=== PATIENT | male | born 1985 | race Caucasian/White ===

== ENCOUNTER 2017-01-12 20:13 | Emergency (ER) | payer BC ==
[~2017-01-12] VITALS: Ht 172.7 cm; Wt 87.7 kg
[2017-01-12 20:15] VITALS: TEMP 36.8; Ht 172.7 cm; Wt 87.7 kg
[2017-01-12] MEDS ORDERED: PARO1TAB27 PO (21:28)
[2017-01-12 21:29] LABS: BASO % 0.3 %; BASO ABS # 0.03 K/uL (0-0.2); COMPLETE YES; EOS % 1.4 %; HEMATOCRIT 42.2 % (42-52); IG% 0.3 %; LYMPH % 28.4 %; LYMPH ABS # 2.66 K/uL (1.2-3.4); MEAN CELL VOLUME 86.5 fL (80-100); MEAN CORPUSCULAR HEMOGLOBIN 29.9 pg (25-34); MEAN CORPUSCULAR HGB CONC 34.6 g/dl (32-36); MEAN PLATELET VOLUME 9.9 fL (7.4-10.4); MONO % 11.1 %; NEUT % 58.5 %; PLATELET COUNT 344 K/uL (130-400); RED BLOOD COUNT 4.88 M/uL (4.7-6.1); WHITE BLOOD COUNT 9.38 K/uL (4.8-10.8)
[2017-01-12 21:49] LABS: ALT/SGPT 91 U/L (12-78); BLOOD UREA NITROGEN 14 mg/dl (7-18); BUN/CREATININE RATIO 15.8 (10-20); CALCIUM 9.3 mg/dl (8.5-10.1); CARBON DIOXIDE 26 mmol/L (21-32); CHLORIDE 101 mmol/L (98-107); CREATININE 0.87 mg/dl (0.60-1.40); GLUCOSE 116 mg/dl (70-99); MAGNESIUM 2.3 mg/dl (1.8-2.4); POTASSIUM 3.6 mmol/L (3.5-5.1); SODIUM 137 mmol/L (136-145)
[2017-01-12 22:00] LABS: ALB/GLOB RATIO 1.1 (0.9-2); ALKALINE PHOSPHATASE 92 U/L (45-117); AST/SGOT 47 U/L (15-37)
--- NOTE | 2017-01-12 22:40 | DIAGNOSTIC IMAGING REPORT ---
CHEST 2 VIEWS ROUTINE HISTORY: Atypical chest pain. COMPARISON: None. FINDINGS: The lungs are clear. Cardiac silhouette is normal in size. No pleural effusions. No pneumothorax. IMPRESSION: No acute process. Electronically signed by: Dami Campbell M.D. 01/12/2017 10:39 PM Dictated Date/Time: 01/12/2017 10:38 PM
[2017-01-12] MEDS ORDERED: KETOROLAC TROMETHAMINE 30 MG/ML VIAL IV STA (22:45)
--- NOTE | 2017-01-12 22:47 | EMERGENCY ROOM VISIT NOTE ---
History First contact with patient: 20:22 Chief Complaint: CHEST PAIN Stated Complaint: CHEST BACK PAIN Nursing Triage Summary: pt states pain in middle chest worsening upon inspiration, pt denix cardiac history, pt states pain is dull and constant pain states "may have coughed too hard." Pt was seen at [facility] and was sent here. History of Present Illness The patient is a 31 year old male who presents to the Emergency Room with complaints of [id number] chest pain for the past 2 days. Rates it at 3.5/ 10. Gradual onset, just sort of noticed it, cannot recall any strenuous activity or trauma that day. States it travels directly through to his back, worsens with deep inhalation, no change with leaning forward. No significant PMH (although mentions his BP is borderline), no known family hx of blood clots or heart problems. States it feels like a pulled muscle, but because of location , wanted to get it checked out. Also reports that he did a crossfit class yesterday and he didn't notice the pain during the class but it returned almost immediately after. Does report occasional palpitations and does report some anxiety in the past, with one or two episodes of lightheadedness. Feels well otherwise, no fever, chills, nausea, vomiting, diarrhea, myalgia or arthralgia. weakness, numbness, tingling, dysuria. Denies any recent illness, no change in appetite. Review of Systems See HPI for pertinent positives and negatives. A total of ten systems were reviewed and were otherwise negative. Past Medical/Surgical History Medical Problems: (1) Anxiety (2) Insomnia Social History Smoking Status: Never Smoker Smokeless Tobacco Use: No Alcohol Use: other (4-6 servings per week (2-3 beers)) Drug Use: none Marital Status: Housing Status: lives with family Occupation Status: employed Current/Historical Medications Scheduled Paroxetine (Paxil), 1 TAB PO DAILY Physical Exam Vital Signs Date Time Temp Pulse Resp B/P (MAP) Pulse Ox O2 Delivery O2 Flow Rate FiO2 01/12/17 22:50 94 18 151/102 96 01/12/17 21:39 98 23 155/105 96 Room Air 01/12/17 20:30 98 01/12/17 20:23 Room Air 01/12/17 20:15 36.8 97 18 157/113 98 Room Air Pain Rating (0-10): 3.5 Physical Exam GENERAL: Awake, alert, well-appearing, in no distress HENT: Normocephalic, atraumatic. Oropharynx unremarkable. EYES: Normal conjunctiva. Sclera non-icteric. NECK: Supple. No nuchal rigidity. FROM. No JVD. RESPIRATORY: Clear to auscultation. CARDIAC: Regular rate, normal rhythm. Extremities warm and well perfused. Pulses equal. Pain not reproducible on exam ABDOMEN: Soft, non-distended. No tenderness to palpation. No rebound or guarding. No masses. RECTAL: Deferred. MUSCULOSKELETAL: Chest examination reveals no tenderness. The back is symmetrical on inspection without obvious abnormality. There is no CVA tenderness to palpation. No joint edema. LOWER EXTREMITIES: Calves are equal size bilaterally and non-tender. No edema. No discoloration. NEURO: Normal sensorium. No sensory or motor deficits noted. SKIN: No rash or jaundice noted. Medical Decision & Procedures ER Provider Diagnostic Interpretation: CHEST 2 VIEWS ROUTINE HISTORY: Atypical chest pain. COMPARISON: None. FINDINGS: The lungs are clear. Cardiac silhouette is normal in size. No pleural effusions. No pneumothorax. IMPRESSION: No acute process. Laboratory Results 01/12/17 20:30 Red Blood Count 4.88, Mean Corpuscular Volume 86.5, Mean Corpuscular Hemoglobin 29.9, Mean Corpuscular Hemoglobin Concent 34.6, Mean Platelet Volume 9.9, Neutrophils (%) (Auto) 58.5, Lymphocytes (%) (Auto) 28.4, Monocytes (%) (Auto) 11.1, Eosinophils (%) (Auto) 1.4, Basophils (%) (Auto) 0.3, Neutrophils # (Auto ) 5.49, Lymphocytes # (Auto) 2.66, Monocytes # (Auto) 1.04, Eosinophils # (Auto ) 0.13, Basophils # (Auto) 0.03 01/12/17 20:30 Test 01/12/17 20:30 White Blood Count 9.38 K/uL (4.8-10.8) Red Blood Count 4.88 M/uL (4.7-6.1) Hemoglobin 14.6 g/dL (14.0-18.0) Hematocrit 42.2 % (42-52) Mean Corpuscular Volume 86.5 fL (80-100) Mean Corpuscular Hemoglobin 29.9 pg (25-34) Mean Corpuscular Hemoglobin Concent 34.6 g/dl (32-36) Platelet Count 344 K/uL (130-400) Mean Platelet Volume 9.9 fL (7.4-10.4) Neutrophils (%) (Auto) 58.5 % Lymphocytes (%) (Auto) 28.4 % Monocytes (%) (Auto) 11.1 % Eosinophils (%) (Auto) 1.4 % Basophils (%) (Auto) 0.3 % Neutrophils # (Auto) 5.49 K/uL (1.4-6.5) Lymphocytes # (Auto) 2.66 K/uL (1.2-3.4) Monocytes # (Auto) 1.04 K/uL (0.11-0.59) Eosinophils # (Auto) 0.13 K/uL (0-0.5) Basophils # (Auto) 0.03 K/uL (0-0.2) RDW Standard Deviation 41.2 fL (36.4-46.3) RDW Coefficient of Variation 13.1 % (11.5-14.5) Immature Granulocyte % (Auto) 0.3 % Immature Granulocyte # (Auto) 0.03 K/uL (0.00-0.02) D-Dimer < 190 ug/L FEU (0-500) Anion Gap 10.0 mmol/L (3-11) Est Creatinine Clear Calc Drug Dose 134.9 ml/min Estimated GFR () 135.2 Estimated GFR (Non- 116.6 BUN/Creatinine Ratio 15.8 (10-20) Calcium Level 9.3 mg/dl (8.5-10.1) Magnesium Level 2.3 mg/dl (1.8-2.4) Total Bilirubin 0.4 mg/dl (0.2-1) Aspartate Amino Transf (AST/SGOT) 47 U/L (15-37) Alanine Aminotransferase (ALT/SGPT) 91 U/L (12-78) Alkaline Phosphatase 92 U/L (45-117) Troponin I < 0.015 ng/ml (0-0.045) Total Protein 7.8 gm/dl (6.4-8.2) Albumin 4.1 gm/dl (3.4-5.0) Globulin 3.7 gm/dl (2.5-4.0) Albumin/Globulin Ratio 1.1 (0.9-2) Thyroid Stimulating Hormone (TSH) 1.630 uIu/ml (0.300-4.500) Medications Administered Medications (Trade) Dose Ordered Sig/Tameka Route Start Time Stop Time Status Last Admin Dose Admin Ketorolac Tromethamine (Toradol Inj) 10 mg NOW STAT IV 01/12/17 22:45 01/12/17 22:46 DC 01/12/17 23:19 10 MG ECG Indication: chest pain Rate (beats per minute): 94 Rhythm: normal sinus Findings: other (Delta waves indicative of WPW) Comparison ECG Date: no prior available ED Course 2030: The patient was evaluated in room C11B. A complete history and physical exam was performed. ordered CXR, Trop, CMP, CBC, Mg, TSH, Ddimer 9: Discussed the patients case with Dr. Mccrary, [facility]. He reports that he is aware of the patient and will notify the salon assistant. The patient will follow up with their group as an outpatient 2245: Ordered Toradol Injection 10 mg IV. 2248: Upon reevaluation, the patient appeared to have improvement of his symptoms. Discussed tonight's findings with the patient. He verbalized agreement of the treatment plan. The patient was discharged home. Medical Decision Prior records/ancillary studies reviewed. Triage Nursing notes reviewed. Additional history obtained from the patient. The patient's history was concerning for chest pain. Differential diagnosis: Etiologies such as cardiac ischemia, aortic dissection, pulmonary embolism, pneumonia, pneumothorax, musculoskeletal, infections, pericarditis, myocarditis , esophageal rupture, gastrointestinal, as well as others were entertained. Physical examination: As above. ER treatment provided: 10 mg toradol On reassessment the patient felt better. 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 The labs revealed nothing abnormal Imaging studies: Chest x-ray as above Consultation: A consultation was placed with the hospitalist. The case was discussed and diagnostics were reviewed. The patient was evaluated in the ER for further treatment. By the evaluation outlined above emergent etiologies such as cardiac ischemia, aortic dissection, pulmonary embolism, pneumonia, pneumothorax, infections, pericarditis, myocarditis, gastrointestinal, as well as others were deemed relatively unlikely. The patient was informed about the findings as listed above. All questions were answered and he was pleased with the treatment. Return instructions were outlined and the patient was discharged in stable condition. Referral: The patient was referred back to [facility]ology as well as his primary care physician for follow-up in 2 to 3 days for a recheck of the current condition. Impression Primary Impression: Atypical chest pain Departure Information Dispostion Home / Self-Care Condition GOOD Patient Instructions ED Chest Pain Atypical Unkn Cause, My [facility] Additional Instructions CHEST PAIN INSTRUCTIONS: Ibuprofen(Motrin, Advil) may be used for fever or pain. Use 600mg every six hours as needed. Take with food. Avoid using more than 2400mg in a 24 hour period. Do not use 2400mg per day for more than three consecutive days without physician direction. Prolonged inappropriate use can lead to stomach upset or ulcers. This is available over the counter and typically comes in 200mg tablets. (AND/OR) Acetaminophen(Tylenol) may be used for fever or pain. Use 1000mg every eight hours as needed. Avoid using more than 3000mg in a 24 hour period. This is available over the counter. Read all the package inserts or medication information paperwork provided. If you have any questions or concerns call your primary provider, pharmacist or the ER for assistance. Rest and drink plenty of fluids as tolerated. Continue current medications. Avoid strenuous activities and anything that worsens your pain. Resume normal activities once your symptoms resolve. Return to the ER immediately for worsening or persistent chest pain, abdominal pain, vomiting, fevers, chest pains, difficulty breathing, worsening of your condition, or as needed. Follow up with your primary physician in 2-3 days for a recheck of your current condition. Please call [facility] cardiology at [phone] to set up an appointment. They will be expecting your call. Resident Tracking Resident Involvement: Resident Care Provided Care Provided: Adult ED
[2017-01-12 22:50] VITALS: BP 151/102; PULSE 94; O2SAT 96
--- NOTE | 2017-01-13 00:24 | EMERGENCY ROOM VISIT NOTE ---
History Report prepared by Vannesaibadilene: Cole Stevenson Under the Supervision of: Dr. Chidi Alvarez M.D. First contact with patient: 20:21 Chief Complaint: CHEST PAIN Stated Complaint: CHEST BACK PAIN Nursing Triage Summary: pt states pain in middle chest worsening upon inspiration, pt denix cardiac history, pt states pain is dull and constant pain states "may have coughed too hard." Pt was seen at [facility] and was sent here. History of Present Illness The patient is a 31 year old male who presents to the Emergency Room with complaints of constant left sided chest pain that started two days ago. He rates his pain as a 3/10 in severity. The patient reports that his pain radiates into his back. He states that his pain is worsened with deep breathing. The patient states that it feels as if he pulled a muscle. He reports that he was doing cross fit last night and admits that his chest pain resolved during exercise. The patient states that after his chest pain returned. He admits to a history of anxiety and palpitations. The patient states that he also experiences tachycardia every so often with his last episode 6-8 months ago. He denies any strenuous activity, trauma, fevers, chills , myalgia, numbness, weakness, recent illness, change in appetite, diaphoresis, leg swelling or pain, recent travel, and a family history of lung or leg clots. Source of History: patient Onset: two days ago Position: chest (left) Symptom Intensity: 3/10 Timing: constant Modifying Factors (Worsening): other (deep breath) Associated Symptoms: + back pain, No fevers, No chills, No diaphoresis, No weakness, No numbness Review of Systems See HPI for pertinent positives & negatives. A total of 10 systems reviewed and were otherwise negative. Past Medical & Surgical Medical Problems: (1) Anxiety (2) Insomnia Family History Depression Diabetes mellitus Social History Smoking Status: Never Smoker Occupation Status: employed Current/Historical Medications Scheduled Paroxetine (Paxil), 1 TAB PO DAILY Allergies Coded Allergies: No Known Allergies (Unverified , 01/12/17) Physical Exam Vital Signs Date Time Temp Pulse Resp B/P (MAP) Pulse Ox O2 Delivery O2 Flow Rate FiO2 01/12/17 22:50 94 18 151/102 96 01/12/17 21:39 98 23 155/105 96 Room Air 01/12/17 20:30 98 01/12/17 20:23 Room Air 01/12/17 20:15 36.8 97 18 157/113 98 Room Air Physical Exam Constitutional: Vital signs reviewed. Eyes: Pupils are equal round reactive to light. Conjunctiva are noninjected. ENT: Pharynx is clear without erythema or exudate. Mucous membranes are moist. Neck supple without meningeal signs. Respiratory: Clear to auscultation bilaterally. Breath sounds are equal bilaterally. Cardiovascular: Regular rate and rhythm. No rubs or gallops. GI: Soft, nondistended and nontender. Bowel sounds are present. Musculoskeletal: No peripheral edema. No lower extremity tenderness. Integumentary: No cyanosis. Neurological: The patient is awake and alert. No focal deficits. Psychiatric: Normal affect. Medical Decision & Procedures ER Provider Diagnostic Interpretation: X-ray results as stated below per interpretation by me and the radiologist: CHEST 2 VIEWS ROUTINE HISTORY: Atypical chest pain. COMPARISON: None. FINDINGS: The lungs are clear. Cardiac silhouette is normal in size. No pleural effusions. No pneumothorax. IMPRESSION: No acute process. Electronically signed by: Dami Campbell M.D. 01/12/2017 10:39 PM Dictated Date/Time: 01/12/2017 10:38 PM Laboratory Results 01/12/17 20:30 Red Blood Count 4.88, Mean Corpuscular Volume 86.5, Mean Corpuscular Hemoglobin 29.9, Mean Corpuscular Hemoglobin Concent 34.6, Mean Platelet Volume 9.9, Neutrophils (%) (Auto) 58.5, Lymphocytes (%) (Auto) 28.4, Monocytes (%) (Auto) 11.1, Eosinophils (%) (Auto) 1.4, Basophils (%) (Auto) 0.3, Neutrophils # (Auto ) 5.49, Lymphocytes # (Auto) 2.66, Monocytes # (Auto) 1.04, Eosinophils # (Auto ) 0.13, Basophils # (Auto) 0.03 01/12/17 20:30 Test 01/12/17 20:30 White Blood Count 9.38 K/uL (4.8-10.8) Red Blood Count 4.88 M/uL (4.7-6.1) Hemoglobin 14.6 g/dL (14.0-18.0) Hematocrit 42.2 % (42-52) Mean Corpuscular Volume 86.5 fL (80-100) Mean Corpuscular Hemoglobin 29.9 pg (25-34) Mean Corpuscular Hemoglobin Concent 34.6 g/dl (32-36) Platelet Count 344 K/uL (130-400) Mean Platelet Volume 9.9 fL (7.4-10.4) Neutrophils (%) (Auto) 58.5 % Lymphocytes (%) (Auto) 28.4 % Monocytes (%) (Auto) 11.1 % Eosinophils (%) (Auto) 1.4 % Basophils (%) (Auto) 0.3 % Neutrophils # (Auto) 5.49 K/uL (1.4-6.5) Lymphocytes # (Auto) 2.66 K/uL (1.2-3.4) Monocytes # (Auto) 1.04 K/uL (0.11-0.59) Eosinophils # (Auto) 0.13 K/uL (0-0.5) Basophils # (Auto) 0.03 K/uL (0-0.2) RDW Standard Deviation 41.2 fL (36.4-46.3) RDW Coefficient of Variation 13.1 % (11.5-14.5) Immature Granulocyte % (Auto) 0.3 % Immature Granulocyte # (Auto) 0.03 K/uL (0.00-0.02) D-Dimer < 190 ug/L FEU (0-500) Anion Gap 10.0 mmol/L (3-11) Est Creatinine Clear Calc Drug Dose 134.9 ml/min Estimated GFR () 135.2 Estimated GFR (Non- 116.6 BUN/Creatinine Ratio 15.8 (10-20) Calcium Level 9.3 mg/dl (8.5-10.1) Magnesium Level 2.3 mg/dl (1.8-2.4) Total Bilirubin 0.4 mg/dl (0.2-1) Aspartate Amino Transf (AST/SGOT) 47 U/L (15-37) Alanine Aminotransferase (ALT/SGPT) 91 U/L (12-78) Alkaline Phosphatase 92 U/L (45-117) Troponin I < 0.015 ng/ml (0-0.045) Total Protein 7.8 gm/dl (6.4-8.2) Albumin 4.1 gm/dl (3.4-5.0) Globulin 3.7 gm/dl (2.5-4.0) Albumin/Globulin Ratio 1.1 (0.9-2) Thyroid Stimulating Hormone (TSH) 1.630 uIu/ml (0.300-4.500) Laboratory results as reviewed by me. Medications Administered Medications (Trade) Dose Ordered Sig/Tameka Route Start Time Stop Time Status Last Admin Dose Admin Ketorolac Tromethamine (Toradol Inj) 10 mg NOW STAT IV 01/12/17 22:45 01/12/17 22:46 DC 01/12/17 23:19 10 MG ECG Indication: chest pain Rate (beats per minute): 94 Rhythm: normal sinus Findings: no acute ischemic change, other (110 IL intervals, delta waves) ED Course 2053: The patient was evaluated in room C11B. A complete history and physical exam was performed. 2108: Dr. Carol Alvarado discussed the patients case with Dr. Mccrary, [facility]. He reports that he was aware of the patient and will notify the hand quilter. The patient will follow up with him. 2244: Ordered Toradol Injection 10 mg IV. 2247: Upon reevaluation, the patient appeared to have improvement of his symptoms. Discussed tonight's findings with the patient. He verbalized agreement of the treatment plan. The patient was discharged home. Medical Decision This is a 31-year-old male who presents with chest pain. Differential diagnosis includes muscle strain, pleurisy, pulmonary embolism, [place], GERD. I did perform a limited focused review of portions of the patient's old chart on the electronic medical record. The patient has had no recent pertinent visits to this hospital. I did evaluate the patient as noted above. The patient is presenting with chest pain. It has been relatively constant for the past 2 days. He states it is better when he exercises. IV access was established. The patient was placed on a continuous account administrator. I did order and personally review the patient's 12-lead EKG and chest x-ray as described above. 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 I did order and review the patient's blood work as noted in the electronic medical record. Troponin and d-dimer are negative. The case was discussed with cardiology. Outpatient follow was recommended. The patient was treated with Toradol and discharged in good condition. Resident Physician Supervision Note: I did evaluate and examine this patient myself. I did guide management for the patient. I agree with the resident's Dr. Carol Alvarado assessment as discussed. Please see the resident's dictation for further details. Medication Reconcilliation Current Medication List: was personally reviewed by me Blood Pressure Screening Patient's blood pressure: Elevated blood pressure Blood pressure disposition: Referred to PCP Consults Time Called: 2108 Consulting Physician: [facility] Returned Call: 2108 Dr. Carol Alvarado discussed the patients case with [facility]. He reports that he was aware of the patient and will notify the hand quilter. The patient will follow up with him. Impression Primary Impression: Acute chest pain Additional Impression: Yjvas-Mbiolzdac-Qvlnd (WPW) syndrome Scribe Attestation The scribe's documentation has been prepared under my direct and personally reviewed by me in its entirety. I confirm that the note above accurately reflects all work, treatment, procedures, and medical decision making performed by me. Departure Information Dispostion Home / Self-Care Referrals No Doctor, Assigned (PCP) Forms HOME CARE DOCUMENTATION FORM, IMPORTANT VISIT INFORMATION Patient Instructions ED Chest Pain Atypical Unkn Cause, My [facility] Additional Instructions CHEST PAIN INSTRUCTIONS: Ibuprofen(Motrin, Advil) may be used for fever or pain. Use 600mg every six hours as needed. Take with food. Avoid using more than 2400mg in a 24 hour period. Do not use 2400mg per day for more than three consecutive days without physician direction. Prolonged inappropriate use can lead to stomach upset or ulcers. This is available over the counter and typically comes in 200mg tablets. (AND/OR) Acetaminophen(Tylenol) may be used for fever or pain. Use 1000mg every eight hours as needed. Avoid using more than 3000mg in a 24 hour period. This is available over the counter. Read all the package inserts or medication information paperwork provided. If you have any questions or concerns call your primary provider, pharmacist or the ER for assistance. Rest and drink plenty of fluids as tolerated. Continue current medications. Avoid strenuous activities and anything that worsens your pain. Resume normal activities once your symptoms resolve. Return to the ER immediately for worsening or persistent chest pain, abdominal pain, vomiting, fevers, chest pains, difficulty breathing, worsening of your condition, or as needed. Follow up with your primary physician in 2-3 days for a recheck of your current condition. Please call [facility]'s cardiology service at [phone] as soon as possible to set up an appointment for your [id number]-szley diagnosis. They are aware that you will be calling. Problem Qualifiers
== END 2017-01-12 23:25 | disposition home or self-care (01) ==
LOC: C.EDB 20:14 → C.EDC 23:25
DX: R07.9 Chest pain, unspecified (principal); I45.6 Pre-excitation syndrome; F41.9 Anxiety disorder, unspecified; G47.00 Insomnia, unspecified; Z83.3 Family history of diabetes mellitus